=== PATIENT | female | born 1990 | race African-American/Black ===

== ENCOUNTER 2020-03-25 10:25 | Emergency (ER) | payer SELFPAY ==
[~2020-03-25] VITALS: Ht 160 cm; Wt 45.5 kg
[2020-03-25 10:26] VITALS: BP 131/58
[2020-03-25 11:30] LABS: APPEARANCE,URINE TURBID (CLEAR); BILIRUBIN,URINE PRELIM. POSITIVE (NEGATIVE); GLUCOSE, URINE (UA) NEGATIVE (NEGATIVE); KETONES,URINE TRACE mg/dL (NEGATIVE); LEUKOCYTE ESTERASE ,URINE LARGE (NEGATIVE); NITRATE,URINE POSITIVE (NEGATIVE); OCCULT BLOOD,URINE LARGE (NEGATIVE); PROTEIN,URINE SEE CONFIRM (NEGATIVE)
[2020-03-25 11:42] LABS: SULFOSALICYLIC ACID,URINE 3+ (Negative)
[2020-03-25 11:43] LABS: BACTERIA,URINE Many /HPF (None Seen); RBC,URINE 51-100 /HPF (0-2); SQUAMOUS EPITHELIAL CELL,UR Moderate /LPF (None Seen); WBC,URINE 51-100 /HPF (0-5)
== END 2020-03-25 12:00 | disposition home or self-care (01) ==
LOC: EMS 10:26
DX: N39.0 Urinary tract infection, site not specified (principal); F17.210 Nicotine dependence, cigarettes, uncomplicated
CPT/HCPCS: 87086; 87210; 87491; 87591; 99406